=== PATIENT | male | born 1945 | race Caucasian/White ===

== ENCOUNTER 2017-06-03 07:43 | Day surgery (SDC) | payer MEDICARE, OTHER ==
[~2017-06-03] VITALS: Ht 170.2 cm; Wt 91.2 kg
[~2017-06-03 07:43] MED LIST: ASPIRIN E.C. 8181 MG PO; CELEBREX 200MG200 MG PO; COUMADIN4 MG PO; DIABETA 5MG5 MG/TAB PO; FLOMAX 0.40.4 MG/CAP PO; FOLIC ACID 40400 MCG PO; GLUCOPHAGE500 MG/TAB PO; IRON325 M1 PO; MULTIPLE VITAMI1 CAP PO; NORCO 325 MG-7.1 TAB PO; PERCOCET 325 MG1 TA2 PO; PRAVACHOL 20MG20 MG PO; PRAVACHOL80 MG PO; PRILOSEC 20MG20 MG PO; ULTRAM 50MG TAB50 MG PO; VITAMIN C500 MG PO; ZOFRAN ODT4 MG PO
[2017-06-03 08:26] VITALS: BP 154/94; PULSE 79; TEMP 98
[2017-06-03] MEDS ORDERED: GLUCOPHAGE500 MG/TAB PO (08:30)
[2017-06-03] MEDS ORDERED: GLUCOTROL10 MG PO (08:30)
[2017-06-03] MEDS ORDERED: ASPIRIN 81M81 MG/TA2 PO (08:31)
[2017-06-03] MEDS ORDERED: PRILOSEC 20MG20 MG PO (08:31)
[2017-06-03] MEDS ORDERED: MULTI VITAMINS1 TAB PO (08:32)
[2017-06-03] MEDS ORDERED: ZOCOR 20MG20 MG PO (08:32)
[2017-06-03] MEDS ORDERED: LOTENSIN 1010 MG/TAB PO (08:32)
[2017-06-03 10:35] VITALS: BP 142/84; PULSE 72; TEMP 97.2
[2017-06-03 10:50] VITALS: BP 150/89; PULSE 76
[2017-06-03 11:05] VITALS: BP 152/78; PULSE 61
== END 2017-06-03 11:35 | disposition home or self-care (01) ==
LOC: SDCO 07:43
DX: Z12.11 Encounter for screening for malignant neoplasm of colon (principal); Z86.010 Personal history of colon polyps; K57.30 Diverticulosis of large intestine without perforation or abscess without bleeding; K64.0 First degree hemorrhoids; K31.7 Polyp of stomach and duodenum; K44.9 Diaphragmatic hernia without obstruction or gangrene; K21.9 Gastro-esophageal reflux disease without esophagitis; K20.9 Esophagitis, unspecified; Z87.19 Personal history of other diseases of the digestive system; I10 Essential (primary) hypertension; E11.9 Type 2 diabetes mellitus without complications; Z79.84 Long term (current) use of oral hypoglycemic drugs
CPT/HCPCS: 43239; G0105; OP; J2250; J3010; J7030